=== PATIENT | female | born 1970 | race African-American/Black ===

== ENCOUNTER 2016-02-22 22:53 | Emergency (ER) | payer MEDICARE, OTHER | END 2016-02-22 23:58 | disposition home or self-care (01) | LOC: ER 22:53 | CPT/HCPCS: 82947 ==

== ENCOUNTER 2016-03-09 07:02 | Emergency (ER) | payer OTHER, MEDICARE ==
[2016-03-09] MEDS ORDERED: METOCLOPRAMIDE 10 MG/2 ML VIAL ONE (10:54)
[2016-03-09] MEDS ORDERED: SODIUM CHLORIDE 0.9% 1,000 ML ONE (10:54)
[2016-03-09] MEDS ORDERED: KETOROLAC 30 MG/ML VIAL ONE (10:55)
[2016-03-09] MEDS ORDERED: DIPHENHYDRAMINE 50 MG/ML VIAL ONE (10:55)
== END 2016-03-09 12:25 | disposition home or self-care (01) ==
LOC: ER 07:02
DX: G43.909 Migraine, unspecified, not intractable, without status migrainosus (principal); R07.9 Chest pain, unspecified; F32.9 Major depressive disorder, single episode, unspecified
CPT/HCPCS: 36415; 70450; 71010; 80053; 81003; 82947; 85025; 85610; 93005; 96361; 96374; 96375

== ENCOUNTER 2016-03-25 17:07 | Emergency (ER) | payer OTHER, MEDICARE ==
[2016-03-25] MEDS ORDERED: ONDANSETRON 4 MG VIAL ONE (18:28)
[2016-03-25] MEDS ORDERED: SODIUM CHLORIDE 0.9% 1,000 ML ONE (18:29)
[2016-03-25] MEDS ORDERED: MORPHINE 4 MG/ML SYR ONE (18:29)
[2016-03-25] MEDS ORDERED: DILAUDID 1 MG/ML AMP ONE (18:37)
== END 2016-03-25 20:48 | disposition home or self-care (01) ==
LOC: ER 17:07
DX: R11.2 Nausea with vomiting, unspecified (principal); R19.7 Diarrhea, unspecified
CPT/HCPCS: 36415; 80053; 83690; 85025; 96361; 96374; 96375